=== PATIENT | female | born 1950 | race Caucasian/White ===

== ENCOUNTER 2017-06-28 22:48 | Emergency (ER) | payer MEDICARE ==
[2017-06-28 23:27] LABS: Bilirubin Negative (Negative); Blood, Urine Negative (Negative); Glucose, Urine (Dipstick) Negative (Negative); Ketone, Urine Negative (Negative); Nitrite Negative (Negative); Protein, Urine (Dipstick) Negative (Neg-Trace); Urobilinogen 0.2 mg/dL (0.2-1.0)
[2017-06-28 23:37] LABS: Anion Gap 17 mmol/L (10-20); BUN (Urea Nitrogen) 18 mg/dL (9.8-20.1); Calc. Creatinine Clearance 0 mL/min (70-130); Calcium 9.5 mg/dL (7.8-10.44); Carbon Dioxide 25 mmol/L (23-31); Chloride 100 mmol/L (98-107); Estimated GFR-MDRD 54
[2017-06-28 23:40] LABS: Band 17 % (5-11); Hematocrit 39.8 % (36.0-47.0); Mean Platelet Volume 7.1 fL (7.4-10.4); Neutrophil 49 % (42-75); Red Blood Cell (RBC) Count 4.43 mill/uL (4.20-5.40); White Blood Cell (WBC) Count 3.4 thou/uL (4.8-10.8)
--- NOTE | 2017-06-29 07:09 | CT ---
ABDOMEN AND PELVIC CT SCAN WITH IV CONTRAST: Date: 06/28/17 HISTORY: 66-year-old female with abdominal pain. FINDINGS: The lung bases are clear. The liver, gallbladder, pancreas, spleen, and adrenal glands are unremarkab le. No evidence for renal calculus or acute obstruction. Unremarkable appearing pelvis. Normal elvis earing appendix. No bowel obstruction, abscess, adenopathy, or abnormal fluid collection. IMPRESSION: No significant acute process in the abdomen or pelvis. POS: YOSEF
== END 2017-06-29 00:21 | disposition home or self-care (01) ==
LOC: SCSER 22:48
DX: R10.32 Left lower quadrant pain (principal); R11.0 Nausea; R79.9 Abnormal finding of blood chemistry, unspecified; F41.9 Anxiety disorder, unspecified
CPT/HCPCS: 74177; 80048; 81003; 85025

== ENCOUNTER 2017-07-30 13:19 | Emergency (ER) | payer MEDICARE ==
[2017-07-30] MEDS ORDERED: Lidocaine Viscous Sol 2% 15 ml UD Cup ONE (13:44)
[2017-07-30] MEDS ORDERED: Mag-Al 1200 mg/1200 mg/30 ML UDCUP ONE (13:44)
[2017-07-30] MEDS ORDERED: Pantoprazole 40 MG VIAL ONE (13:44)
[2017-07-30 13:52] LABS: Prothrombin Time 12.8 SEC (12.0-14.7)
[2017-07-30 13:53] LABS: PTT 30.8 SEC (22.9-36.1)
[2017-07-30 13:55] LABS: #Basophils 0.1 thou/uL (0.0-0.2); #Eosinphils 0.1 thou/uL (0.0-0.7); #Lymphocytes 1.6 thou/uL (1.20-3.40); #Monocytes 0.6 thou/uL (0.11-0.59); #Neutrophils 4.2 thou/uL (1.40-6.50); %Basophils 0.9 % (0.0-1.0); %Eosinophils 1.3 % (0.0-10.0); %Lymphocytes 24.2 % (21.0-51.0); %Monocytes 8.9 % (0.0-10.0); %Neutrophils 64.8 % (42.0-75.0); Hemoglobin 13.7 g/dL (12.0-16.0); Mean Corpuscular HGB CONC 32.8 g/dL (32.0-36.0); Mean Corpuscular Hemoglobin 30.7 pg (27.0-31.0); Mean Corpuscular Volume 93.5 fl (81.0-99.0); Mean Platelet Volume 8.1 fL (7.4-10.4); Platelet Count 189 thou/uL (130-400); RBC Distribution Width 12.1 % (11.5-14.5); Red Blood Cell (RBC) Count 4.47 mill/uL (4.20-5.40); White Blood Cell (WBC) Count 6.4 thou/uL (4.8-10.8)
[2017-07-30 14:08] LABS: ALT (SGPT) 15 U/L (8-55); AST (SGOT) 24 U/L (5-34); Albumin 4.9 g/dL (3.4-4.8); Alkaline Phosphatase 82 U/L (40-150); Anion Gap 15 mmol/L (10-20); BUN (Urea Nitrogen) 21 mg/dL (9.8-20.1); Bilirubin, Total 0.5 mg/dL (0.2-1.2); CK (CPK) 84 U/L (29-168); Calc. Creatinine Clearance 0 mL/min (70-130); Calcium 10.3 mg/dL (7.8-10.44); Carbon Dioxide 27 mmol/L (23-31); Chloride 99 mmol/L (98-107); Estimated GFR-MDRD 54; Globulin 2.9 g/dL (2.4-3.5); Glucose 87 mg/dL (80-115); Lipase 19 U/L (8-78); Protein, Total 7.8 g/dL (6.0-8.3); Sodium 137 mmol/L (136-145)
--- NOTE | 2017-07-30 14:10 | RAD ---
AP VIEW CHEST: Date: 07/30/17 INDICATION: Chest pain. COMPARISON: None. FINDINGS: Lungs are clear. Cardiomediastinal silhouette is within normal limits. No acute osseous abnormality i s evident. IMPRESSION: No acute cardiopulmonary abnormality. POS: ALESHA
[2017-07-30 14:12] LABS: CKMB 1.3 ng/mL (0-6.6); Troponin I Less than 0.010 ng/mL (< 0.028)
== END 2017-07-30 15:20 | disposition home or self-care (01) ==
LOC: ERS 13:19
DX: K21.9 Gastro-esophageal reflux disease without esophagitis (principal)
CPT/HCPCS: 71045; 80053; 82550; 82553; 83690; 84484; 85025; 85610; 85730; 93005; 96374; C9113

== ENCOUNTER 2018-02-24 12:55 | Outpatient (CLI) | payer MEDICARE | END 2018-02-24 12:56 | disposition home or self-care (01) | LOC: BICULT 12:55 | PROVIDERS: ATTEND Internal Medicine | DX: N18.3 Chronic kidney disease, stage 3 (moderate) (principal) | CPT/HCPCS: 76770 ==

== ENCOUNTER 2018-06-23 08:16 | Outpatient (CLI) | payer MEDICARE ==
--- NOTE | 2018-06-23 10:59 | MRI ---
LUMBAR SPINE MRI WITHOUT IV CONTRAST: History: 67-year-old female with history of lumbago with sciatica on left side, chronic low back pain. FINDINGS: Conus medullaris region is unremarkable terminating at L1. T12-L1 and L1-2: Unremarkable. L2-3: There is some diffuse disc bulging with ligament and facet hypertrophic changes with some mild lateral recess stenosis and mild left foraminal stenosis. L3-4: Mild lateral recess stenosis and moderate left foraminal stenosis. L4-5: Mixed, including some prominent type I endplate changes, with moderate right and moderate to ma rked left lateral recess stenosis and moderate to severe bilateral foraminal stenosis, worse on the l eft side. L5-S1: Moderate bilateral foraminal stenosis without central canal or lateral recess stenosis. IMPRESSION: Variable severity multilevel mostly lateral recess and foraminal stenosis, most marked at L4-5 with s ome associated type I endplate changes. POS: TPC
== END 2018-06-23 08:17 | disposition home or self-care (01) ==
LOC: BICMRI 08:16
PROVIDERS: ATTEND Nurse Practitioner Family
DX: M54.42 Lumbago with sciatica, left side (principal); M48.061 Spinal stenosis, lumbar region without neurogenic claudication
CPT/HCPCS: 72148

== ENCOUNTER 2019-07-19 12:49 | Outpatient (CLI) | payer MEDICARE ==
[2019-07-19 16:09] LABS: #Basophils 0.1 thou/uL (0.0-0.2); #Eosinphils 0.1 thou/uL (0.0-0.7); #Lymphocytes 1.7 thou/uL (1.20-3.40); #Monocytes 0.6 thou/uL (0.11-0.59); #Neutrophils 3.1 thou/uL (1.40-6.50); %Eosinophils 1.5 % (0.0-10.0); %Lymphocytes 30.6 % (21.0-51.0); %Monocytes 10.9 % (0.0-10.0); %Neutrophils 55.9 % (42.0-75.0); Hemoglobin 13.8 g/dL (12.0-16.0); Mean Corpuscular HGB CONC 33.4 g/dL (32.0-36.0); Mean Corpuscular Volume 92.9 fL (78.0-98.0); Platelet Count 209 thou/uL (130-400); RBC Distribution Width 12.1 % (11.5-14.5); Red Blood Cell (RBC) Count 4.45 mill/uL (4.20-5.40); White Blood Cell (WBC) Count 5.5 thou/uL (4.8-10.8)
[2019-07-19 16:27] LABS: Anion Gap 11 mmol/L (10-20); BUN (Urea Nitrogen) 27 mg/dL (9.8-20.1); Calc. Creatinine Clearance 0 mL/min (70-130); Calcium 9.9 mg/dL (7.8-10.44); Carbon Dioxide 33 mmol/L (23-31); Chloride 99 mmol/L (98-107); Estimated GFR-MDRD 47; Glucose 94 mg/dL (80-115); Potassium 4.1 mmol/L (3.5-5.1); Sodium 139 mmol/L (136-145)
--- NOTE | 2019-07-25 09:49 | EKG ---
Test Reason : Blood Pressure : / mmHG Vent. Rate : 071 BPM Atrial Rate : 071 BPM P-R Int : 150 ms QRS Dur : 088 ms QT Int : 408 ms P-R-T Axes : 085 086 078 degrees QTc Int : 443 ms Normal sinus rhythm Right atrial enlargement Borderline ECG When compared with ECG of 30-JUL-2017 13:27, No significant change was found Confirmed by LOS PADILLA (2) on 07/25/2019 9:48:37 AM Referred By: DRU Confirmed By:LOS PADILLA
== END 2019-07-19 12:50 | disposition home or self-care (01) ==
LOC: LABBT 12:49
PROVIDERS: ATTEND Surgery
DX: Z01.818 Encounter for other preprocedural examination (principal); D17.1 Benign lipomatous neoplasm of skin and subcutaneous tissue of trunk
CPT/HCPCS: 80048; 85025; 93005; 93010

== ENCOUNTER 2019-07-24 06:36 | Day surgery (SDC) | payer MEDICARE ==
[2019-07-19 15:15] VITALS: BMI 20.9
[2019-07-24] MEDS ORDERED: Bupivacaine 0.25% HCL 30 ML VIAL ONE (08:58)
[2019-07-24] MEDS ORDERED: Lidocaine 1% w/Epinephrine 1:100K 20 ML VIAL ONE (08:58)
[2019-07-24] MEDS ORDERED: Midazolam HCl 2 mg/2 ml Vial ONE (08:59)
[2019-07-24] MEDS ORDERED: Fentanyl 100 MCG/2 ML VIAL ONE (08:59)
[2019-07-24] MEDS ORDERED: Lidocaine 1% PF 5 ML VIAL ONE (09:50)
[2019-07-24] MEDS ORDERED: PROPOFOL 200 MG/20 ML VIAL ONE (09:50)
[2019-07-24] MEDS ORDERED: Ondansetron PF 4 MG/2 ML Vial ONE (09:50)
[2019-07-24] MEDS ORDERED: Dexamethasone 20 MG/5 ML VIAL ONE (09:50)
--- NOTE | 2019-07-25 14:20 | OP ---
DATE OF PROCEDURE: 07/24/2019 PREOPERATIVE DIAGNOSIS: Painful lipoma, left lower back. PROCEDURE PERFORMED: Excisional biopsy. INDICATIONS: A 68-year-old female who had a painful mobile soft tissue mass, left lower back. She is here for excision. FINDINGS: A 3 cm multilobular subfascial lipoma. DESCRIPTION OF PROCEDURE: After informed consent was obtained, the patient was taken to the operating room and given general endotracheal anesthesia. She was placed in the right lateral decubitus position. Her back was prepped and draped in usual fashion. Local anesthesia was infiltrated subcutaneously and deep with 0.5% Marcaine. Transverse incision was performed. Subcu was divided sharply. The fascia was incised. Under the fascia, it was lipoma. This was dissected out, but it had multiple lobules that were also dissected out from the capsules. The specimen was completely excised and sent to Pathology for further analysis. Hemostasis was achieved with electrocautery. The fascia was closed with interrupted 3-0 Vicryl suture. The skin was closed with a running subcuticular 4-0 Rapide. Dermabond was applied. The patient tolerated the procedure well, transferred to Recovery in good condition. Sponge and needle count verified correct x2. Job ID: [id number]
== END 2019-07-24 11:35 | disposition home or self-care (01) ==
LOC: SDC 06:36
PROVIDERS: ATTEND Surgery
PROC: 0JB70ZZ Excision of Back Subcutaneous Tissue and Fascia, Open Approach (ICD-10-PCS; principal; 2019-07-24)
DX: D17.1 Benign lipomatous neoplasm of skin and subcutaneous tissue of trunk (principal); F41.9 Anxiety disorder, unspecified; E78.5 Hyperlipidemia, unspecified; Z79.899 Other long term (current) drug therapy; Z88.2 Allergy status to sulfonamides
CPT/HCPCS: 88304; J0690; J1100; J2001; J2250; J2405; J2704; J3010; S0020

== ENCOUNTER 2020-10-01 10:39 | Outpatient (CLI) | payer MEDICARE | END 2020-10-01 10:40 | disposition home or self-care (01) | LOC: BICMAMMO 10:39 | PROVIDERS: ATTEND Internal Medicine | DX: Z13.820 Encounter for screening for osteoporosis (principal); Z78.0 Asymptomatic menopausal state; M85.88 Other specified disorders of bone density and structure, other site | CPT/HCPCS: 77080 ==

== ENCOUNTER 2020-10-09 08:48 | Outpatient (CLI) | payer MEDICARE | END 2020-10-09 08:49 | disposition home or self-care (01) | LOC: BICRAD 08:48 | PROVIDERS: ATTEND Internal Medicine | DX: M25.511 Pain in right shoulder (principal) ==

== ENCOUNTER 2020-11-04 12:35 | Outpatient (CLI) | payer MEDICARE | END 2020-11-04 12:36 | LOC: BICMRI 12:35 | PROVIDERS: ATTEND Anesthesiology Pain Medicine | DX: M48.02 Spinal stenosis, cervical region (principal); M47.812 Spondylosis without myelopathy or radiculopathy, cervical region | CPT/HCPCS: 72141 ==

== ENCOUNTER 2023-02-08 09:46 | Outpatient (CLI) | payer MEDICARE | END 2023-02-08 09:47 | disposition home or self-care (01) | LOC: BICMAMMO 09:46 | PROVIDERS: ATTEND Internal Medicine | DX: Z13.820 Encounter for screening for osteoporosis (principal); M85.89 Other specified disorders of bone density and structure, multiple sites; Z78.0 Asymptomatic menopausal state | CPT/HCPCS: 77080 ==

== ENCOUNTER 2024-05-30 13:55 | Outpatient (CLI) | payer MEDICARE | END 2024-05-30 13:56 | disposition home or self-care (01) | LOC: BICRAD 13:55 | PROVIDERS: ATTEND Internal Medicine | DX: M79.644 Pain in right finger(s) (principal); M18.11 Unilateral primary osteoarthritis of first carpometacarpal joint, right hand ==

== ENCOUNTER 2024-08-11 13:57 | Outpatient (CLI) | payer MEDICARE | END 2024-08-11 13:58 | disposition home or self-care (01) | LOC: BICMAMMO 13:57 | PROVIDERS: ATTEND Obstetrics & Gynecology | DX: R92.8 Other abnormal and inconclusive findings on diagnostic imaging of breast (principal) | CPT/HCPCS: 77065; G0279 ==